=== PATIENT | male | born 1970 | race Caucasian/White ===

== ENCOUNTER 2023-11-28 16:07 | Emergency (ER) | payer BC ==
[2023-11-28] MEDS: Lidocaine 2% with EPINEPHrine 1:200,000 20 ML SDV INJECT ONE (16:55)
[2023-11-28] MEDS: cefTRIAXone 1 GM Vial IM ONE (17:43)
[2023-11-28] MEDS: Diphtheria,Pertussis(Acell),Tetanus Vaccine 0.5 ML Syringe IM ONE (17:43)
[2023-11-28] MEDS: Take Home: Cephalexin 500 MG Cap, 6 Cap Pack PO ONE (17:57)
[2023-11-28] MEDS ORDERED: Bacitracin/Neomycin/Polymyxin B Oint 28.4 GM Tube ONE (18:00)
[2023-11-28] MEDS: Bacitracin/Neomycin/Polymyxin B Oint 28.4 GM Tube TOP ONE (18:00)
== END 2023-11-28 18:04 | disposition home or self-care (01) ==
LOC: DL.ED 16:07
DX: S60.450A Superficial foreign body of right index finger, initial encounter (principal); Z23 Encounter for immunization; W45.8XXA Other foreign body or object entering through skin, initial encounter
CPT/HCPCS: 73130; 90471; 90715; 96372; 99283; A9270; J0696; J3490